=== PATIENT | female | born 1955 | race Caucasian/White ===

== ENCOUNTER 2024-08-29 07:45 | Emergency (ER) | payer OTHER, MEDICARE ==
[~2024-08-29] VITALS: Ht 147.3 cm; Wt 82.0 kg
[2024-08-29 11:00] VITALS: BP 145/78
== END 2024-08-29 09:39 | disposition home or self-care (01) ==
LOC: ED 07:45
DX: S42.442A Displaced fracture (avulsion) of medial epicondyle of left humerus, initial encounter for closed fracture (principal); V49.69XA Unspecified car occupant injured in collision with other motor vehicles in traffic accident, initial encounter; I48.91 Unspecified atrial fibrillation; Z79.01 Long term (current) use of anticoagulants
CPT/HCPCS: 36415; 70450; 71045; 73080; 73130; 99284-25; G0480